=== PATIENT | female | born 1940 | race Caucasian/White ===

== ENCOUNTER 2019-04-09 16:48 | Inpatient (IN) | payer MEDICARE ==
[~2019-04-09] VITALS: Ht 167.6 cm; Wt 79.5 kg
[~2019-04-09 16:48] MED LIST: ASPI325T17 PO; CELE200C PO; CHOL40002 PO; CHOL400L PO; CYAN25009 PO; FLUO20TA25 PO; FOLI-17 PO; LEVO75TA5 PO; LORA0.5T PO; MAGN250T8 PO; MELO7.5T31 PO; MINO60FO3 TP; MULT1TAB11 PO; OXYC5CAP2 PO; PANT20TA3 PO; TRAM50TA2 PO; potassium PO
--- NOTE | 2019-04-09 17:00 | NUR ---
PT BIB [facility] FROM HOME WHERE SHE SUFFERED A SYNCOPAL EPISODE WHILE STANDING UP AT THE [place]ID[place]. EMS FOUND PT TO BE HYPOTENSIVE 70s/50s, HR 60s. PT HAD R KNEE REPLACEMENT YESTERDAY AND WAS DISCHARGED EARLIER TODAY. PER EMS, PT HIT HER R SHOULDER WHEN SHE FELL. IV WAS STARTED BY EMS, PT WAS GIVEN 1000ML NS WITH IMPROVEMENT OF BP TO 119/56. PT DENIES MAJOR MEDICAL HX. STATES SHE HAD AN ECHOCARDIOGRAM 2 WEEKS AGO THAT WAS CLEAR. PT REPORTS SHE DID HAVE A "SINUS BLOCKAGE" ABOUT A WEEK AGO AND HAD TO BE TREATED WITH ABX. UPON ARRIVAL TO ED, PT'S SPO2 NOTED TO BE 87-90% ON RA. PLACED ON 2.5L O2 NC. ERP AT BS IMMEDIATELY. EKG DONE IMMEDIATELY. Addendum: 04/09/19 at 1826 by MURALI INITIAL NOTE WRITTEN BY SANDRO WILSON.
[2019-04-09] MEDS ORDERED: HYDROcodone/APAP 5/325 TABLET ONE (17:43)
--- NOTE | 2019-04-09 17:50 | NUR ---
PT MEDICATED FOR R KNEE PAIN. AND CAREGIVER AT .
[2019-04-09 17:58] LABS: ALANINE AMINOTRANSFERASE 43 U/L (12-78); ALBUMIN 2.8 g/dL (3.4-5.0); ANION GAP 6 mmol/L (5-15); CALCIUM 8.6 mg/dL (8.5-10.1); CHLORIDE 109 mmol/L (98-107); CREATININE 0.85 mg/dL (0.55-1.02)
[2019-04-09] MEDS ORDERED: HYDROcodone/APAP 5/325 TABLET PO ONE (18:00)
[2019-04-09 18:02] LABS: ALKALINE PHOSPHATASE 58 U/L (45-117); BILIRUBIN,TOTAL 0.5 mg/dL (0.2-1.0); TOTAL PROTEIN 5.7 g/dL (6.4-8.2); TROPONIN I < 0.015 ng/mL (0.000-0.045)
[2019-04-09 18:10] LABS: BASOPHILS # (AUTO) 0.03 x10^3/uL (0-0.1); BASOPHILS % (AUTO) 0 % (0-1); EOSINOPHILS # (AUTO) 0.14 x10^3/uL (0-0.4); EOSINOPHILS % (AUTO) 1 % (1-7); LYMPHOCYTES % (AUTO) 12 % (22-44); MD NO; MEAN CORPUSCULAR HEMOGLOBIN 30.4 pg (27.0-34.8); MEAN CORPUSCULAR HGB CONC 32.6 g/dL (32.4-35.8); MEAN CORPUSCULAR VOLUME 93.2 fL (80-100); MEAN PLATELET VOLUME 8.3 fL (7.4-10.4); MONOCYTES # (AUTO) 1.22 x10^3/uL (0.2-0.8); MONOCYTES % (AUTO) 11 % (2-9); NEUTROPHILS % (AUTO) 76 % (42-75); PLATELET COUNT 274 x10^3/uL (130-400); RED BLOOD COUNT 4.09 x10^6/uL (3.82-5.3); RED CELL DISTRIBUTION WIDTH 14.7 % (9.6-15.2)
--- NOTE | 2019-04-09 18:25 | NUR ---
PT TO CT VIA MIN. AND [employer] ENGINEER LEAVING FOR THE NIGHT. POC RV'WD WITH PT AND FAMILY. Addendum: 04/09/19 at 2030 by MURALI MAY BE CALLED WITH ANY UPDATES, WILL BE BACK IN THE MORNING: DM GARCIA . RACHELLE EMMANUEL IS ONE OF 'S CAREGIVERS: .
[2019-04-09] MEDS ORDERED: OMNIPAQUE 350 MG/ML, 100ML BOTTLE ONE (18:51)
[2019-04-09] MEDS ORDERED: POLYETHYLENE GLYCOL 17 GM PACKET PO PRN (19:30)
[2019-04-09] MEDS ORDERED: BISACODYL 10 MG SUPP PR PRN (19:30)
[2019-04-09] MEDS ORDERED: ONDANSETRON ODT 4 MG PO PRN (19:30)
[2019-04-09] MEDS ORDERED: OXYcodone/APAP 5/325MG TABLET PO PRN (19:30)
--- NOTE | 2019-04-09 19:47 | NUR ---
CAROTID US BEING DONE AT BS.
[2019-04-09] MEDS: SODIUM CHLORIDE FLUSH 10ML SYR IVF SCH (20:54)
[2019-04-09 21:54] VITALS: BP 147/84
[2019-04-09 21:55] VITALS: BP 145/81
[2019-04-09 21:57] VITALS: BP 165/95
[2019-04-10 01:58] VITALS: BP 115/70
[2019-04-10 02:01] VITALS: BP 128/70
[2019-04-10 02:02] VITALS: BP 148/83
[2019-04-10 05:06] LABS: BASOPHILS # (AUTO) 0.04 x10^3/uL (0-0.1); BASOPHILS % (AUTO) 1 % (0-1); EOSINOPHILS # (AUTO) 0.19 x10^3/uL (0-0.4); EOSINOPHILS % (AUTO) 2 % (1-7); LYMPHOCYTES # (AUTO) 2.07 x10^3/uL (1-3.4); LYMPHOCYTES % (AUTO) 27 % (22-44); MD NO; MEAN CORPUSCULAR HEMOGLOBIN 30.1 pg (27.0-34.8); MEAN CORPUSCULAR HGB CONC 32.8 g/dL (32.4-35.8); MEAN CORPUSCULAR VOLUME 91.7 fL (80-100); MONOCYTES # (AUTO) 1.14 x10^3/uL (0.2-0.8); MONOCYTES % (AUTO) 15 % (2-9); NEUTROPHILS # (AUTO) 4.35 x10^3/uL (1.8-6.8); NEUTROPHILS % (AUTO) 56 % (42-75); PLATELET COUNT 257 x10^3/uL (130-400); RED BLOOD COUNT 3.94 x10^6/uL (3.82-5.3); RED CELL DISTRIBUTION WIDTH 14.4 % (9.6-15.2)
[2019-04-10 05:08] LABS: ALBUMIN 2.8 g/dL (3.4-5.0); ANION GAP 8 mmol/L (5-15); CALCIUM 8.2 mg/dL (8.5-10.1); CHLORIDE 108 mmol/L (98-107)
[2019-04-10 05:15] LABS: ALANINE AMINOTRANSFERASE 41 U/L (12-78); ALKALINE PHOSPHATASE 55 U/L (45-117); BILIRUBIN,TOTAL 0.6 mg/dL (0.2-1.0); CREATININE 0.64 mg/dL (0.55-1.02); TOTAL PROTEIN 5.6 g/dL (6.4-8.2); TROPONIN I < 0.015 ng/mL (0.000-0.045)
[2019-04-10] MEDS ORDERED: LEVOTHYROXINE 75 MCG TABLET PO SCH (06:00)
[2019-04-10] MEDS ORDERED: ASPIRIN 81 MG TABLET EC PO SCH (06:00)
[2019-04-10 07:58] VITALS: BP 133/78
[2019-04-10] MEDS ORDERED: FLUOXETINE HCL 20 MG CAPSULE PO SCH (09:00)
[2019-04-10] MEDS ORDERED: MAGNESIUM OXIDE 400 MG TABLET PO SCH (09:00)
[2019-04-10] MEDS ORDERED: SENNA/DOCUSATE TABLET PO SCH (09:00)
[2019-04-10] MEDS ORDERED: CHOLECALCIFEROL 1,000 UNIT TABLET PO SCH (09:00)
[2019-04-10] MEDS ORDERED: CYANOCOBALAMIN 1,000 MCG TABLET PO SCH (09:00)
[2019-04-10] MEDS: SODIUM CHLORIDE FLUSH 10ML SYR IVF SCH (09:00)
[2019-04-10] MEDS ORDERED: POTASSIUM 198 MG PO SCH (09:00)
[2019-04-10 11:37] LABS: TROPONIN I < 0.015 ng/mL (0.000-0.045)
[2019-04-10 14:00] VITALS: BP 138/72
== END 2019-04-10 15:47 | disposition home or self-care (01) | DRG 312 ==
LOC: ED 19:23 → 4WST 20:39 → DCLOUNGE 04-10 15:37
PROVIDERS: ADMIT Family Medicine; ATTEND Family Medicine
DX: I95.1 Orthostatic hypotension (principal); J96.01 Acute respiratory failure with hypoxia; K21.9 Gastro-esophageal reflux disease without esophagitis; E03.9 Hypothyroidism, unspecified; M19.90 Unspecified osteoarthritis, unspecified site; Z80.42 Family history of malignant neoplasm of prostate; Z96.651 Presence of right artificial knee joint; Z86.73 Personal history of transient ischemic attack (TIA), and cerebral infarction without residual deficits
CPT/HCPCS: 36415; 71045; 71275; 80053; 83880; 84484; 85025; 93005; 93880; 99285; G0378; Q9967